=== PATIENT | male | born 1945 | race Caucasian/White ===

== ENCOUNTER → 2016-07-13 | Outpatient (CLI) | payer MEDICARE, OTHER ==
[~2016-07-13] MED LIST: DAILY VITE1 TA2 PO; LORATADINE 10MG10 M1 PO; METFORMIN 500M500 MG PO; VICODIN 5/500 T1 TAB PO; VOLTAREN75 MG PO
== END ==
LOC: DIETICIAN 07-04 10:00
DX: E11.9 Type 2 diabetes mellitus without complications (principal); Z71.3 Dietary counseling and surveillance